=== PATIENT | female | born 1940 | race Caucasian/White ===

== ENCOUNTER → 2016-08-13 | Outpatient (CLI) | payer MEDICARE, BC | LOC: MC.RAD 08:18 | DX: Z12.31 Encounter for screening mammogram for malignant neoplasm of breast (principal) ==

== ENCOUNTER → 2017-09-23 | Outpatient (CLI) | payer MEDICARE, BC | LOC: MC.RAD 08:40 | DX: Z12.31 Encounter for screening mammogram for malignant neoplasm of breast (principal); Z98.890 Other specified postprocedural states ==

== ENCOUNTER → 2018-10-04 | Outpatient (CLI) | payer MEDICARE, BC | LOC: MC.RAD 08:31 | DX: Z12.31 Encounter for screening mammogram for malignant neoplasm of breast (principal) ==

== ENCOUNTER → 2019-09-12 | Outpatient (CLI) | payer MEDICARE, BC | LOC: MC.RAD 08:45 | DX: Z12.31 Encounter for screening mammogram for malignant neoplasm of breast (principal) ==

== ENCOUNTER → 2019-10-06 | Outpatient (CLI) | payer MEDICARE, BC | LOC: MC.RAD 08:02 | DX: Z12.31 Encounter for screening mammogram for malignant neoplasm of breast (principal); Z98.82 Breast implant status ==

== ENCOUNTER → 2020-10-09 | Outpatient (CLI) | payer MEDICARE, BC | LOC: MC.RAD 11:09 | DX: Z12.31 Encounter for screening mammogram for malignant neoplasm of breast (principal); N64.89 Other specified disorders of breast ==

== ENCOUNTER → 2020-10-14 | Outpatient (CLI) | payer MEDICARE, BC | LOC: MC.RAD 10:45 | DX: N64.89 Other specified disorders of breast (principal) ==

== ENCOUNTER → 2021-02-17 | Outpatient (CLI) | payer MEDICARE, BC | LOC: MC.RAD 08:00 | DX: N63.14 Unspecified lump in the right breast, lower inner quadrant (principal) ==

== ENCOUNTER → 2021-10-16 | Outpatient (CLI) | payer MEDICARE, BC | LOC: MC.RAD 09:03 | DX: Z12.31 Encounter for screening mammogram for malignant neoplasm of breast (principal) ==

== ENCOUNTER → 2022-11-24 | Outpatient (CLI) | payer MEDICARE, BC | LOC: MC.RAD 10:42 | DX: Z12.31 Encounter for screening mammogram for malignant neoplasm of breast (principal) ==

== ENCOUNTER → 2023-12-06 | Outpatient (CLI) | payer MEDICARE, BC | LOC: MC.RAD 09:12 | DX: Z12.31 Encounter for screening mammogram for malignant neoplasm of breast (principal) ==